=== PATIENT | male | born 1985 | race Caucasian/White ===

== ENCOUNTER 2016-10-22 11:49 | Emergency (ER) | payer BC, OTHER ==
[~2016-10-22] VITALS: Ht 170.2 cm; Wt 83.0 kg
[2016-10-22 11:53] VITALS: BP 112/72; PULSE 74; TEMP 36.8; O2SAT 98; Ht 170.2 cm; Wt 83.0 kg
--- NOTE | 2016-10-22 12:34 | EMERGENCY ROOM VISIT NOTE ---
ED Visit Note First contact with patient: 12:07 CHIEF COMPLAINT: Left hand laceration 16 hours ago HISTORY OF PRESENT ILLNESS: Patient is a [id number] 31-year-old white male who presents emergency department for evaluation of a laceration to the palmar aspect of his left hand. 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 He cleansed it with soap and water, and applied antibiotic ointment and a bandage. He was able to get the bleeding controlled. He notes that it was slightly swollen at that time. He went to work this morning, he works in [employer], and was doing a lot of shoveling. He states that while at work the wound opened and was bleeding. He went to a local [facility] facility and was referred here for further care and evaluation. Patient notes the practitioner at the urgent care facility examined the wound , but "could not do anything" for him. He notes that it is now more swollen since they examined him. He notes a throbbing pain that he rates an 8/10. He has not taken any medication for discomfort. He denies weakness or numbness of the hand or fingers. REVIEW OF SYSTEMS: Review of systems as per HPI. All other systems reviewed were negative. At least 6 systems reviewed. PMH: The patient is healthy; there is no significant medical or surgical history. Tetanus is up-to-date. SOCIAL HISTORY: Patient lives at home. PHYSICAL EXAM: Vital Signs: Reviewed Nurse's notes. There is a 1 cm long laceration on the palmar aspect of the left hand over the thenar eminence, with some surrounding soft tissue swelling. The edges are gaping slightly. There is no foreign material in the wound. There is no active bleeding. No deep structures such as tendons or nerves are seen in the base of the wound. Extension and flexion of the thumb is full and strong. Sensation to pain and light touch is intact. EMERGENCY DEPARTMENT COURSE: Wound was cleansed with saline and Betadine. Mechanism of injury is not consistent with a foreign body or fracture and it was not felt that radiographs would be of any added benefit. Patient had bleeding and wound under control until he went to work and was shoveling, at which point the wound opened back up. Treatment options with the patient. He is exceeding hours out from the injury, and delayed primary closure was felt to be ill advised due to his high risk for infection. He expressed understanding of this. Benzoin, Steri-Strips and a light dressing were applied. Conservative care measures were discussed. He was at advised to avoid doing anything strenuous with the left hand for the next week until the wound can heal. We'll monitor for any signs of infection. I do not suspect ligamentous disruption. Current/Historical Medications Scheduled Citalopram Hydrobromide (Celexa), 20 MG PO DAILY Allergies Coded Allergies: No Known Allergies (Unverified , 10/22/16) Vital Signs Date Time Temp Pulse Resp B/P (MAP) Pulse Ox O2 Delivery O2 Flow Rate FiO2 10/22/16 11:53 36.8 74 16 112/72 98 Departure Information Impression Primary Impression: Hand laceration Referrals Diony Bauer M.D. (MEDICAL) (PCP) Patient Instructions My [facility] Additional Instructions Gently clean wound daily, cover with an antibiotic ointment and keep covered until it heals. Allow Steri-Strips to fall off on their own. Return for any signs of infection (increasing redness, swelling, drainage). Ice and elevate for swelling and pain. Ibuprofen 600 mg and Tylenol 1000 mg every 6 hrs for pain.
[2016-10-22] MEDS ORDERED: CITA20TA9 PO (12:36)
== END 2016-10-22 12:42 | disposition home or self-care (01) ==
LOC: C.EDB 11:50 → C.EDD 12:42
DX: S61.412A Laceration without foreign body of left hand, initial encounter (principal); W45.8XXA Other foreign body or object entering through skin, initial encounter